=== PATIENT | female | born 1950 | race American Indian/Alaskan Native ===

== ENCOUNTER 2021-08-22 22:00 | Inpatient (IN) | payer MEDICARE, MEDICAID ==
[~2021-08-22] VITALS: Ht 167.6 cm; Wt 126.5 kg
[~2021-08-22 22:00] MED LIST: ATOR80TA PO; BRIM5DRO16 RIGHTEYE; CARV-50 PO; CLOP75TA34 PO; FURO80TA87 PO; HYDR-4069 PO; NYSPWD TP; OLOP5DRO26 EACHEYE; PER5325T PO; ZET10T PO
[2021-08-23] VITALS (7 sets, daily range): BP systolic 128–193; BP diastolic 39–51
[2021-08-23] MEDS ORDERED: morphine 2 MG/ML inj. syringe IV PRN (01:15)
[2021-08-23] MEDS: normal saline 1000ml 1,000 ML IV SCH (01:15)
[2021-08-23] MEDS ORDERED: acetaminophen 325mg tablet PO PRN ×2 (01:15)
[2021-08-23] MEDS ORDERED: HYDROcodone/acetaminophen 5mg/325mg tablet PO PRN (01:15)
[2021-08-23] MEDS ORDERED: ondansetron/PF 4mg/2ml inj IV PRN (01:15)
[2021-08-23] MEDS ORDERED: hyDRALAzine 10mg tablet PO PRN (01:15)
[2021-08-23] MEDS ORDERED: dextrose 50%-water 50ml dispensing syringe IV PRN ×2 (01:30)
[2021-08-23] MEDS ORDERED: MESSAGE TO PHARMACY PO ONE (01:30)
[2021-08-23] MEDS ORDERED: glucagon, human recombinant 1mg kit SUBCUT PRN (01:30)
[2021-08-23] MEDS ORDERED: DEXTROSE 15 GM of carb/4 tabs (each vial/BOTTLE has 4 tablets) PO PRN ×2 (01:30)
[2021-08-23] MEDS: ciprofloxacin 250mg tablet PO SCH ×3 (01:56→21:30)
[2021-08-23] MEDS ORDERED: PHO667C PO (02:11)
[2021-08-23] MEDS ORDERED: INSU100I31 (02:11)
[2021-08-23] MEDS ORDERED: DOCU-342 PO (02:11)
[2021-08-23] MEDS ORDERED: ATOR-2 PO (02:11)
[2021-08-23] MEDS ORDERED: GABA-530 PO (02:11)
[2021-08-23] MEDS ORDERED: NYST15PO4 TOP (02:11)
[2021-08-23] MEDS ORDERED: FURO80TA3 PO (02:11)
[2021-08-23] MEDS ORDERED: CARV3.122 PO (02:11)
[2021-08-23] MEDS ORDERED: INSU100I34 SQ (02:11)
[2021-08-23] MEDS ORDERED: EZET10TA48 PO (02:11)
[2021-08-23] MEDS ORDERED: LANTUS SQ (02:11)
[2021-08-23] MEDS ORDERED: CYC1OS RIGHTEYE (02:11)
[2021-08-23] MEDS ORDERED: LISI40TA13 PO (02:11)
[2021-08-23] MEDS ORDERED: PANT40TA54 PO (02:11)
[2021-08-23] MEDS: furosemide 40mg/4ml inj IV SCH ×3 (02:17→20:00)
--- NOTE | 2021-08-23 02:24 | NUR ---
LAB CALLED TO NOTIFY THAT I AM UNABLE TO GET BLOOD FROM KEVIN UMANZOR. AND [facility] FOR MIDLINE WILL PUT THIS MNG SO IT WILL BE EASIER TO TAKE BLOOD .
[2021-08-23] MEDS: morphine 2 MG/ML inj. syringe IV PRN ×2 (07:54→21:44)
[2021-08-23] MEDS: HYDROcodone/acetaminophen 10/325mg tab PO PRN (09:29)
[2021-08-23] MEDS ORDERED: heparin 1,000unit/ml 10ml vial 10 ML IV ONE (09:30)
[2021-08-23] MEDS ORDERED: heparin 1,000 units/ml 10ml inj IV ONE (09:30)
[2021-08-23] MEDS ORDERED: albumin (human) 25% 100ml IV 100 ML IV PRN (09:30)
[2021-08-23] MEDS ORDERED: EPOETIN ALFA-EPBX 20,000 UNIT/ML 1 ML MDV IV ONE (09:30)
[2021-08-23 10:24] LABS: BASOPHILS % (AUTO) 0.6 % (0-1); EOSINOPHILS # (AUTO) 0.6 X10'3 (0-0.9); EOSINOPHILS % (AUTO) 10.4 % (0-6); HEMATOCRIT 24.8 % (35.0-45.0); HEMOGLOBIN 8.1 g/dl (12.0-16.0); LYMPHOCYTES # (AUTO) 0.7 X10'3 (1.1-4.8); LYMPHOCYTES % (AUTO) 11.7 % (21-51); MEAN CORPUSCULAR HEMOGLOBIN 29.9 PG (27.0-31.0); MEAN CORPUSCULAR HGB CONC 32.6 g/dL (33.0-36.5); MEAN CORPUSCULAR VOLUME 91.5 FL (78-98); MEAN PLATELET VOLUME 7.3 FL (7.4-10.4); MONOCYTES # (AUTO) 0.5 X10'3 (0-0.9); MONOCYTES % (AUTO) 8.9 % (2-12); NEUTROPHILS % (AUTO) 68.4 % (42-75); PLATELET COUNT 223 X10'3 (140-440); RED BLOOD COUNT 2.71 X10'6 (4.20-5.60); RED CELL DISTRIBUTION WIDTH 17.5 % (11.5-14.5); WHITE BLOOD COUNT 5.9 X10'3 (4.5-11.0)
[2021-08-23 10:35] LABS: ALANINE AMINOTRANSFERASE 33 U/L (12-78); ALBUMIN 2.9 G/DL (3.4-5.0); ALBUMIN/GLOBULIN RATIO 0.9 (1.1-1.5); ALKALINE PHOSPHATASE 71 IU/L (46-116); ANION GAP 11 (8-16); ASPARTATE AMINO TRANSFERASE 22 U/L (10-37); BILIRUBIN,TOTAL 0.4 MG/DL (0.1-1.0); BLOOD UREA NITROGEN 75 MG/DL (7-18); BUN/CREATININE RATIO 10.1 (6.6-38.0); CALCIUM 8.2 MG/DL (8.5-10.1); CHLORIDE 105 MMOL/L (99-107); CREATININE 7.46 MG/DL (0.40-0.90); GLUCOSE 82 MG/DL (70-104); MAGNESIUM 2.4 MG/DL (1.5-2.4); PHOSPHORUS 7.2 MG/DL (2.3-4.5); POTASSIUM 5.3 MMOL/L (3.5-5.1); SODIUM 144 MMOL/L (135-145); TOTAL CARBON DIOXIDE 27.7 MMOL/L (24-32); TOTAL PROTEIN 6.2 G/DL (6.4-8.2); eGFR 5 ML/MIN
[2021-08-23] MEDS ORDERED: CARV-50 PO (11:12)
[2021-08-23] MEDS: heparin, porcine 5000 units/ml vial SQ SCH ×2 (11:22→20:00)
--- NOTE | 2021-08-23 11:47 | NUR ---
PAGER ID: [phone] MESSAGE: [id number] Ashley Harding- Requests Hydroxyzine for itching. Gladys [id number]
--- NOTE | 2021-08-23 11:48 | NUR ---
PAGER ID: [phone] MESSAGE: [id number] Master Harding to place midline for lab draws? Pt is difficult stick. Gladys [id number] Addendum: 08/23/21 at 1205 by Gladys Fatima RN Dr. Ferris states she does not want her to have a midline
[2021-08-23] MEDS ORDERED: HYDR-3686 PO (12:03)
[2021-08-23] MEDS ORDERED: hydrOXYzine 25 MG tablet PO ONE (12:05)
[2021-08-23] MEDS ORDERED: INSU100I31 SQ (13:47)
[2021-08-23] MEDS ORDERED: FOSI40TA71 PO (13:47)
--- NOTE | 2021-08-23 14:06 | NUR ---
DM consult: Pt with T2DM, well controlled with A1c 6.6% with BG range 76-82 since admit. DM education not warranted at this time. Noted pt with a low Naun of 12. Per RN skin assessment pt with bruises to bilat arms and an open area to coccyx. Will continue to follow and make recommendations as appropriate pending trends in PO intake. Addendum: 08/23/21 at [address] Amended: Links added.
--- NOTE | 2021-08-23 16:57 | NUR ---
PAGER ID: [phone] MESSAGE: [id number] Dyan Harding- unable to get clean UA. OK to straight cath? Gladys [id number]
--- NOTE | 2021-08-23 18:27 | NUR ---
Problems reprioritized. Patient report given, questions answered & plan of care reviewed with Ghazal VALLE.
[2021-08-23] MEDS ORDERED: temazepam 15mg capsule PO PRN (21:00)
[2021-08-23] MEDS: insulin glargine (Lantus) pen - multi-dose SQ SCH (21:00)
[2021-08-24 02:00] VITALS: BP 153/57
[2021-08-24 06:00] VITALS: BP 149/42
[2021-08-24 06:36] LABS: BASOPHILS % (AUTO) 1.1 % (0-1); EOSINOPHILS # (AUTO) 0.6 X10'3 (0-0.9); EOSINOPHILS % (AUTO) 13.4 % (0-6); HEMATOCRIT 24.4 % (35.0-45.0); LYMPHOCYTES # (AUTO) 0.5 X10'3 (1.1-4.8); LYMPHOCYTES % (AUTO) 11.7 % (21-51); MEAN CORPUSCULAR HEMOGLOBIN 30.2 PG (27.0-31.0); MEAN CORPUSCULAR HGB CONC 32.7 g/dL (33.0-36.5); MEAN CORPUSCULAR VOLUME 92.5 FL (78-98); MEAN PLATELET VOLUME 7.6 FL (7.4-10.4); MONOCYTES # (AUTO) 0.4 X10'3 (0-0.9); MONOCYTES % (AUTO) 9.8 % (2-12); NEUTROPHILS # (AUTO) 2.9 X10'3 (1.8-7.7); PLATELET COUNT 199 X10'3 (140-440); RED BLOOD COUNT 2.64 X10'6 (4.20-5.60); RED CELL DISTRIBUTION WIDTH 17.5 % (11.5-14.5); WHITE BLOOD COUNT 4.6 X10'3 (4.5-11.0)
[2021-08-24 06:50] LABS: ALANINE AMINOTRANSFERASE 28 U/L (12-78); ALBUMIN 2.7 G/DL (3.4-5.0); ALBUMIN/GLOBULIN RATIO 0.8 (1.1-1.5); ALKALINE PHOSPHATASE 69 IU/L (46-116); ANION GAP 13 (8-16); ASPARTATE AMINO TRANSFERASE 23 U/L (10-37); BILIRUBIN,TOTAL 0.4 MG/DL (0.1-1.0); BLOOD UREA NITROGEN 74 MG/DL (7-18); BUN/CREATININE RATIO 10.4 (6.6-38.0); CALCIUM 8.1 MG/DL (8.5-10.1); CHLORIDE 105 MMOL/L (99-107); CREATININE 7.13 MG/DL (0.40-0.90); GLUCOSE 104 MG/DL (70-104); MAGNESIUM 2.3 MG/DL (1.5-2.4); PHOSPHORUS 7.4 MG/DL (2.3-4.5); POTASSIUM 5.6 MMOL/L (3.5-5.1); SODIUM 143 MMOL/L (135-145); TOTAL PROTEIN 5.9 G/DL (6.4-8.2); eGFR 6 ML/MIN
[2021-08-24] MEDS ORDERED: heparin 1,000 units/ml 10ml inj HE ONE ×2 (08:00)
[2021-08-24] MEDS ORDERED: EPOETIN ALFA-EPBX 20,000 UNIT/ML 1 ML MDV IV ONE (08:00)
[2021-08-24] MEDS ORDERED: heparin 1,000 units/ml 10ml inj IV ONE (08:00)
[2021-08-24] MEDS ORDERED: albumin (human) 25% 100ml IV 100 ML IV PRN (08:00)
[2021-08-24] MEDS ORDERED: heparin 1,000unit/ml 10ml vial 10 ML IV ONE (08:00)
[2021-08-24] MEDS: heparin, porcine 5000 units/ml vial SQ SCH ×2 (08:02→19:37)
[2021-08-24] MEDS: furosemide 40mg/4ml inj IV SCH ×2 (08:02→20:00)
[2021-08-24] MEDS: morphine 2 MG/ML inj. syringe IV PRN ×2 (08:03→21:11)
[2021-08-24] MEDS: HYDROcodone/acetaminophen 10/325mg tab PO PRN ×2 (10:14→19:38)
--- NOTE | 2021-08-24 10:14 | NUR ---
RESOURCE RN PAIN MEDICATION GIVEN FOR PRIMARY NURSE ZAC VALLE [facility]
[2021-08-24 11:00] VITALS: BP 127/46
[2021-08-24] MEDS ORDERED: hydrOXYzine 25 MG tablet PO SCH (13:00)
[2021-08-24] MEDS: calcium acetate 667mg (PhosLO) capsule PO SCH ×2 (13:00→20:02)
[2021-08-24] MEDS: carVEDilol 12.5mg tablet PO SCH ×2 (13:13→20:00)
[2021-08-24] MEDS: lisinopril 20mg tablet PO SCH (13:13)
[2021-08-24] MEDS: ciprofloxacin 250mg tablet PO SCH ×2 (14:10→21:00)
--- NOTE | 2021-08-24 14:59 | NUR ---
PRESSURE ULCER EDUCATION: DEFINITION: A pressure ulcer is an area of skin that breaks down when you stay in one position too long. The constant pressure against the skin reduces the blood flow to that area and the affected tissue dies. CAUSES: "Being bedridden or in a wheelchair "Fragile skin "Having a chronic condition, such as diabetes or vascular disease "Inability to move certain parts of your body without assistance "Older age "Incontinence of urine or stool SYMPTOMS: "A reddened area that DOES NOT turn white when pressed on - this can be the beginning of a pressure ulcer "A blister, deep sore or a crater - these can be advanced pressure ulcers FIRST AID: "Relieve the pressure on this area "Keep the area clean and dry "Call your primary doctor if you see any of the above symptoms "DO NOT massage the area "DO NOT use a donut shaped or ring shaped pillow- these actually interfere with the blood flow and cause complications PREVENTION: "Check for pressure ulcers everyday "Change position at least every two hours to relieve pressure "Use items that help relieve pressure- pillows, sheepskin, foam padding, and powders. "Keep skin clean and dry "Eat healthy well balanced meals "Exercise daily IF YOU SEE ANY OF THESE SYMPTOMS WHILE IN THE HOSPITAL - TELL YOUR NURSE IMMEDIATELY. IF YOU SEE ANY OF THESE SYMPTOMS WHILE AT HOME OR HAVE ANY QUESTIONS OR CONCERNS ABOUT PRESSURE ULCERS - CALL YOUR PRIMARY DOCTOR IMMEDIATELY. Addendum: 08/24/21 at 1500 by Merlyn Almeida RN Amended: Links added.
[2021-08-24 15:00] VITALS: BP 160/50
[2021-08-24] MEDS: cyclopentolate 1% 2ml ophthalmic solution RIGHTEYE SCH ×3 (15:54→21:00)
[2021-08-24] MEDS: pantoprazole 40mg Tablet.DR PO SCH (16:16)
--- NOTE | 2021-08-24 18:07 | NUR ---
Problems reprioritized. Patient report given, questions answered & plan of care reviewed with Ranjana VALLE.
--- NOTE | 2021-08-24 18:09 | NUR ---
Patient in room PCU 3014. I have received report from LEONARD Graham and had the opportunity to ask questions and assume patient care.
[2021-08-24 19:00] VITALS: BP 167/53
[2021-08-24] MEDS: nystatin 15 GM powder TP SCH (19:44)
[2021-08-24] MEDS: gabapentin 100mg capsule PO SCH (20:01)
[2021-08-24] MEDS: insulin glargine (Lantus) pen - multi-dose SQ SCH (20:35)
[2021-08-24 23:00] VITALS: BP 149/46
[2021-08-25] MEDS: normal saline 1000ml 1,000 ML IV SCH (01:55)
[2021-08-25 03:00] VITALS: BP 150/52
[2021-08-25 06:00] VITALS: BP 155/40
--- NOTE | 2021-08-25 06:11 | NUR ---
Problems reprioritized. Patient report given, questions answered & plan of care reviewed with LEONARD Graham.
[2021-08-25 06:57] LABS: BASOPHILS % (AUTO) 0.9 % (0-1); EOSINOPHILS # (AUTO) 0.4 X10'3 (0-0.9); EOSINOPHILS % (AUTO) 11.5 % (0-6); HEMATOCRIT 24.2 % (35.0-45.0); HEMOGLOBIN 7.9 g/dl (12.0-16.0); LYMPHOCYTES # (AUTO) 0.6 X10'3 (1.1-4.8); LYMPHOCYTES % (AUTO) 16.6 % (21-51); MEAN CORPUSCULAR HGB CONC 32.8 g/dL (33.0-36.5); MEAN CORPUSCULAR VOLUME 91.6 FL (78-98); MEAN PLATELET VOLUME 7.7 FL (7.4-10.4); MONOCYTES # (AUTO) 0.5 X10'3 (0-0.9); MONOCYTES % (AUTO) 11.9 % (2-12); NEUTROPHILS # (AUTO) 2.3 X10'3 (1.8-7.7); NEUTROPHILS % (AUTO) 59.1 % (42-75); PLATELET COUNT 186 X10'3 (140-440); RED BLOOD COUNT 2.64 X10'6 (4.20-5.60); RED CELL DISTRIBUTION WIDTH 16.7 % (11.5-14.5); WHITE BLOOD COUNT 3.8 X10'3 (4.5-11.0)
[2021-08-25 07:16] LABS: ALANINE AMINOTRANSFERASE 23 U/L (12-78); ALBUMIN 2.7 G/DL (3.4-5.0); ALBUMIN/GLOBULIN RATIO 0.8 (1.1-1.5); ALKALINE PHOSPHATASE 68 IU/L (46-116); ANION GAP 11 (8-16); ASPARTATE AMINO TRANSFERASE 16 U/L (10-37); BILIRUBIN,TOTAL 0.4 MG/DL (0.1-1.0); BLOOD UREA NITROGEN 54 MG/DL (7-18); BUN/CREATININE RATIO 9.5 (6.6-38.0); CALCIUM 8.4 MG/DL (8.5-10.1); CHLORIDE 104 MMOL/L (99-107); GLUCOSE 148 MG/DL (70-104); MAGNESIUM 2.1 MG/DL (1.5-2.4); PHOSPHORUS 6.1 MG/DL (2.3-4.5); POTASSIUM 4.8 MMOL/L (3.5-5.1); SODIUM 143 MMOL/L (135-145); TOTAL CARBON DIOXIDE 27.6 MMOL/L (24-32); eGFR 7 ML/MIN
[2021-08-25] MEDS: heparin, porcine 5000 units/ml vial SQ SCH ×2 (07:16→19:59)
[2021-08-25] MEDS: pantoprazole 40mg Tablet.DR PO SCH (07:16)
[2021-08-25] MEDS: calcium acetate 667mg (PhosLO) capsule PO SCH ×3 (07:16→20:21)
[2021-08-25] MEDS: carVEDilol 12.5mg tablet PO SCH ×2 (07:16→19:54)
[2021-08-25] MEDS: atorvastatin 20mg tablet PO SCH (07:17)
[2021-08-25] MEDS: HYDROcodone/acetaminophen 10/325mg tab PO PRN ×2 (07:18→14:01)
[2021-08-25] MEDS: cyclopentolate 1% 2ml ophthalmic solution RIGHTEYE SCH ×4 (07:19→20:21)
[2021-08-25] MEDS: lisinopril 20mg tablet PO SCH (07:19)
[2021-08-25] MEDS: furosemide 40mg/4ml inj IV SCH ×2 (07:27→19:59)
[2021-08-25] MEDS: nystatin 15 GM powder TP SCH ×2 (07:27→19:55)
[2021-08-25] MEDS ORDERED: insulin glargine (Lantus) pen - multi-dose SQ SCH (08:00)
[2021-08-25] MEDS ORDERED: furosemide 40mg tablet PO SCH (08:00)
[2021-08-25] MEDS: morphine 2 MG/ML inj. syringe IV PRN ×3 (09:24→19:55)
[2021-08-25] MEDS: ciprofloxacin 250mg tablet PO SCH ×2 (10:27→21:40)
[2021-08-25 11:00] VITALS: BP 156/37
[2021-08-25] MEDS: hydrOXYzine 25 MG tablet PO PRN ×2 (14:01→19:55)
[2021-08-25 15:00] VITALS: BP 180/58
--- NOTE | 2021-08-25 18:13 | NUR ---
Problems reprioritized. Patient report given, questions answered & plan of care reviewed with Ranjana VALLE.
--- NOTE | 2021-08-25 18:15 | NUR ---
Patient in room PCU 3014. I have received report from LEONARD Graham and had the opportunity to ask questions and assume patient care.
[2021-08-25 19:00] VITALS: BP 138/55
[2021-08-25] MEDS: gabapentin 100mg capsule PO SCH (20:21)
[2021-08-25] MEDS: insulin glargine (Lantus) pen - multi-dose SQ SCH (21:43)
[2021-08-25 23:00] VITALS: BP 135/23
[2021-08-26] MEDS: morphine 2 MG/ML inj. syringe IV PRN ×2 (00:28→08:20)
[2021-08-26 03:00] VITALS: BP 139/41
[2021-08-26 06:00] VITALS: BP 131/41
--- NOTE | 2021-08-26 06:15 | NUR ---
Problems reprioritized. Patient report given, questions answered & plan of care reviewed with LEONARD Pendleton.
[2021-08-26 06:35] LABS: BASOPHILS % (AUTO) 0.8 % (0-1); EOSINOPHILS # (AUTO) 0.6 X10'3 (0-0.9); EOSINOPHILS % (AUTO) 15.2 % (0-6); HEMATOCRIT 23.7 % (35.0-45.0); HEMOGLOBIN 7.9 g/dl (12.0-16.0); LYMPHOCYTES # (AUTO) 0.6 X10'3 (1.1-4.8); LYMPHOCYTES % (AUTO) 17.3 % (21-51); MEAN CORPUSCULAR HEMOGLOBIN 30.3 PG (27.0-31.0); MEAN CORPUSCULAR HGB CONC 33.1 g/dL (33.0-36.5); MEAN CORPUSCULAR VOLUME 91.5 FL (78-98); MEAN PLATELET VOLUME 7.7 FL (7.4-10.4); MONOCYTES # (AUTO) 0.4 X10'3 (0-0.9); MONOCYTES % (AUTO) 10.8 % (2-12); NEUTROPHILS % (AUTO) 55.9 % (42-75); PLATELET COUNT 186 X10'3 (140-440); WHITE BLOOD COUNT 3.6 X10'3 (4.5-11.0)
[2021-08-26 06:55] LABS: ALANINE AMINOTRANSFERASE 21 U/L (12-78); ALBUMIN 2.9 G/DL (3.4-5.0); ALBUMIN/GLOBULIN RATIO 0.8 (1.1-1.5); ALKALINE PHOSPHATASE 67 IU/L (46-116); ANION GAP 7 (8-16); ASPARTATE AMINO TRANSFERASE 14 U/L (10-37); BILIRUBIN,TOTAL 0.4 MG/DL (0.1-1.0); BLOOD UREA NITROGEN 58 MG/DL (7-18); BUN/CREATININE RATIO 9.2 (6.6-38.0); CALCIUM 8.6 MG/DL (8.5-10.1); CHLORIDE 102 MMOL/L (99-107); CREATININE 6.32 MG/DL (0.40-0.90); GLUCOSE 137 MG/DL (70-104); MAGNESIUM 2.2 MG/DL (1.5-2.4); PHOSPHORUS 6.7 MG/DL (2.3-4.5); POTASSIUM 4.6 MMOL/L (3.5-5.1); SODIUM 134 MMOL/L (135-145); TOTAL CARBON DIOXIDE 25.5 MMOL/L (24-32); TOTAL PROTEIN 6.6 G/DL (6.4-8.2); eGFR 6 ML/MIN
[2021-08-26] MEDS: carVEDilol 12.5mg tablet PO SCH ×2 (08:00→20:00)
[2021-08-26] MEDS: lisinopril 20mg tablet PO SCH (08:00)
[2021-08-26] MEDS ORDERED: heparin 1,000unit/ml 10ml vial 10 ML IV ONE (08:00)
[2021-08-26] MEDS: cyclopentolate 1% 2ml ophthalmic solution RIGHTEYE SCH ×4 (08:00→21:00)
[2021-08-26] MEDS ORDERED: albumin (human) 25% 100ml IV 100 ML IV PRN (08:00)
[2021-08-26] MEDS: calcium acetate 667mg (PhosLO) capsule PO SCH ×4 (08:00→21:00)
[2021-08-26] MEDS ORDERED: heparin 1,000 units/ml 10ml inj IV ONE (08:00)
[2021-08-26] MEDS ORDERED: EPOETIN ALFA-EPBX 20,000 UNIT/ML 1 ML MDV IV ONE (08:00)
[2021-08-26] MEDS: nystatin 15 GM powder TP SCH ×2 (08:16→20:00)
[2021-08-26] MEDS: furosemide 40mg/4ml inj IV SCH ×2 (08:16→20:00)
[2021-08-26] MEDS: heparin, porcine 5000 units/ml vial SQ SCH ×2 (08:17→20:00)
[2021-08-26] MEDS: atorvastatin 20mg tablet PO SCH (08:17)
[2021-08-26] MEDS: pantoprazole 40mg Tablet.DR PO SCH (08:17)
[2021-08-26] MEDS: HYDROcodone/acetaminophen 10/325mg tab PO PRN (11:19)
[2021-08-26] MEDS: ciprofloxacin 250mg tablet PO SCH ×2 (11:45→22:00)
[2021-08-26 15:00] VITALS: BP 128/38
[2021-08-26 18:00] VITALS: BP 133/34
--- NOTE | 2021-08-26 18:14 | NUR ---
Patient in room PCU 3014. I have received report to Ghazal Varghese and had the opportunity to ask questions and assume patient care.
[2021-08-26] MEDS: insulin glargine (Lantus) pen - multi-dose SQ SCH (21:00)
[2021-08-26] MEDS: gabapentin 100mg capsule PO SCH (21:00)
[2021-08-26 22:00] VITALS: BP 137/34
[2021-08-27] MEDS: normal saline 1000ml 1,000 ML IV SCH (01:15)
[2021-08-27 02:00] VITALS: BP 132/46
[2021-08-27] MEDS: morphine 2 MG/ML inj. syringe IV PRN ×3 (05:47→20:38)
[2021-08-27 06:00] VITALS: BP 146/50
[2021-08-27 07:34] LABS: BASOPHILS % (AUTO) 0.8 % (0-1); EOSINOPHILS # (AUTO) 0.5 X10'3 (0-0.9); EOSINOPHILS % (AUTO) 11.6 % (0-6); HEMOGLOBIN 8.1 g/dl (12.0-16.0); LYMPHOCYTES # (AUTO) 0.5 X10'3 (1.1-4.8); LYMPHOCYTES % (AUTO) 11.9 % (21-51); MEAN CORPUSCULAR HEMOGLOBIN 29.9 PG (27.0-31.0); MEAN CORPUSCULAR HGB CONC 32.3 g/dL (33.0-36.5); MEAN CORPUSCULAR VOLUME 92.7 FL (78-98); MEAN PLATELET VOLUME 7.7 FL (7.4-10.4); MONOCYTES # (AUTO) 0.5 X10'3 (0-0.9); MONOCYTES % (AUTO) 10.9 % (2-12); NEUTROPHILS # (AUTO) 2.8 X10'3 (1.8-7.7); NEUTROPHILS % (AUTO) 64.8 % (42-75); PLATELET COUNT 206 X10'3 (140-440); RED CELL DISTRIBUTION WIDTH 17.3 % (11.5-14.5); WHITE BLOOD COUNT 4.4 X10'3 (4.5-11.0)
[2021-08-27 07:44] LABS: ALANINE AMINOTRANSFERASE 18 U/L (12-78); ALBUMIN 2.7 G/DL (3.4-5.0); ALBUMIN/GLOBULIN RATIO 0.8 (1.1-1.5); ALKALINE PHOSPHATASE 66 IU/L (46-116); ANION GAP 8 (8-16); ASPARTATE AMINO TRANSFERASE 11 U/L (10-37); BILIRUBIN,TOTAL 0.3 MG/DL (0.1-1.0); BLOOD UREA NITROGEN 38 MG/DL (7-18); BUN/CREATININE RATIO 7.2 (6.6-38.0); CALCIUM 8.4 MG/DL (8.5-10.1); CHLORIDE 103 MMOL/L (99-107); CREATININE 5.25 MG/DL (0.40-0.90); GLUCOSE 154 MG/DL (70-104); PHOSPHORUS 5.4 MG/DL (2.3-4.5); POTASSIUM 4.5 MMOL/L (3.5-5.1); SODIUM 141 MMOL/L (135-145); TOTAL CARBON DIOXIDE 29.7 MMOL/L (24-32); TOTAL PROTEIN 5.9 G/DL (6.4-8.2); eGFR 8 ML/MIN
[2021-08-27] MEDS: atorvastatin 20mg tablet PO SCH (07:59)
[2021-08-27] MEDS: pantoprazole 40mg Tablet.DR PO SCH (07:59)
[2021-08-27] MEDS: lisinopril 20mg tablet PO SCH (08:00)
[2021-08-27] MEDS: calcium acetate 667mg (PhosLO) capsule PO SCH ×3 (08:00→20:24)
[2021-08-27] MEDS: heparin, porcine 5000 units/ml vial SQ SCH ×2 (08:01→20:22)
[2021-08-27] MEDS: furosemide 40mg/4ml inj IV SCH ×2 (08:01→20:22)
[2021-08-27] MEDS: carVEDilol 12.5mg tablet PO SCH ×2 (08:01→20:22)
[2021-08-27] MEDS: cyclopentolate 1% 2ml ophthalmic solution RIGHTEYE SCH ×4 (08:03→20:24)
[2021-08-27] MEDS: nystatin 15 GM powder TP SCH ×2 (08:04→20:00)
[2021-08-27] MEDS: HYDROcodone/acetaminophen 10/325mg tab PO PRN ×4 (08:13→22:57)
[2021-08-27] MEDS: ciprofloxacin 250mg tablet PO SCH ×2 (10:26→22:00)
[2021-08-27 11:00] VITALS: BP 155/37
[2021-08-27] MEDS: hydrOXYzine 25 MG tablet PO PRN ×3 (12:03→21:12)
[2021-08-27] MEDS: NUT.TX.IMP.RENAL FXN,LAC-REDUC (Nepro) 237 ML VANILLA PO SCH (12:30)
[2021-08-27] MEDS: insulin Lispro (HumaLOG) vial - multi-dose SQ SCH (12:54)
[2021-08-27 15:00] VITALS: BP 126/26
[2021-08-27] MEDS: JUVEN Smoothie Arginine/Glut./Ca2+Bmb (Juven 19.3pkt) 240ml cup PO SCH (17:48)
[2021-08-27 18:00] VITALS: BP 127/54
--- NOTE | 2021-08-27 18:28 | NUR ---
Problems reprioritized. Patient report given, questions answered & plan of care reviewed with Ghazal VALLE.
[2021-08-27] MEDS: gabapentin 100mg capsule PO SCH (20:22)
[2021-08-27] MEDS: insulin glargine (Lantus) pen - multi-dose SQ SCH (21:00)
[2021-08-27 22:00] VITALS: BP 138/41
[2021-08-28 02:00] VITALS: BP 128/41
[2021-08-28 06:00] VITALS: BP 148/42
[2021-08-28 06:48] LABS: EOSINOPHILS # (AUTO) 0.7 X10'3 (0-0.9); EOSINOPHILS % (AUTO) 17.3 % (0-6); HEMATOCRIT 24.7 % (35.0-45.0); HEMOGLOBIN 8.2 g/dl (12.0-16.0); LYMPHOCYTES # (AUTO) 0.7 X10'3 (1.1-4.8); MEAN CORPUSCULAR HEMOGLOBIN 30.6 PG (27.0-31.0); MEAN CORPUSCULAR HGB CONC 33.1 g/dL (33.0-36.5); MEAN CORPUSCULAR VOLUME 92.6 FL (78-98); MEAN PLATELET VOLUME 7.6 FL (7.4-10.4); MONOCYTES # (AUTO) 0.5 X10'3 (0-0.9); MONOCYTES % (AUTO) 12.1 % (2-12); NEUTROPHILS # (AUTO) 2.1 X10'3 (1.8-7.7); NEUTROPHILS % (AUTO) 51.6 % (42-75); PLATELET COUNT 200 X10'3 (140-440); RED BLOOD COUNT 2.66 X10'6 (4.20-5.60); RED CELL DISTRIBUTION WIDTH 17.2 % (11.5-14.5); WHITE BLOOD COUNT 4.2 X10'3 (4.5-11.0)
[2021-08-28 07:05] LABS: ALANINE AMINOTRANSFERASE 18 U/L (12-78); ALBUMIN 2.8 G/DL (3.4-5.0); ALBUMIN/GLOBULIN RATIO 0.9 (1.1-1.5); ALKALINE PHOSPHATASE 65 IU/L (46-116); ANION GAP 10 (8-16); ASPARTATE AMINO TRANSFERASE 10 U/L (10-37); BILIRUBIN,TOTAL 0.3 MG/DL (0.1-1.0); BLOOD UREA NITROGEN 42 MG/DL (7-18); CALCIUM 8.3 MG/DL (8.5-10.1); CHLORIDE 100 MMOL/L (99-107); CREATININE 5.98 MG/DL (0.40-0.90); GLUCOSE 176 MG/DL (70-104); PHOSPHORUS 5.9 MG/DL (2.3-4.5); POTASSIUM 4.4 MMOL/L (3.5-5.1); SODIUM 138 MMOL/L (135-145); TOTAL CARBON DIOXIDE 28.3 MMOL/L (24-32); eGFR 7 ML/MIN
[2021-08-28] MEDS: carVEDilol 12.5mg tablet PO SCH ×2 (08:18→20:00)
[2021-08-28] MEDS: heparin, porcine 5000 units/ml vial SQ SCH ×2 (08:19→20:00)
[2021-08-28] MEDS: atorvastatin 20mg tablet PO SCH (08:20)
[2021-08-28] MEDS: pantoprazole 40mg Tablet.DR PO SCH (08:20)
[2021-08-28] MEDS: calcium acetate 667mg (PhosLO) capsule PO SCH ×3 (08:21→21:00)
[2021-08-28] MEDS: lisinopril 20mg tablet PO SCH (08:21)
[2021-08-28] MEDS: nystatin 15 GM powder TP SCH ×2 (08:22→20:00)
[2021-08-28] MEDS: cyclopentolate 1% 2ml ophthalmic solution RIGHTEYE SCH ×2 (08:22→13:00)
[2021-08-28] MEDS: JUVEN Smoothie Arginine/Glut./Ca2+Bmb (Juven 19.3pkt) 240ml cup PO SCH ×2 (08:23→17:48)
[2021-08-28] MEDS: furosemide 40mg/4ml inj IV SCH ×2 (08:28→20:00)
[2021-08-28] MEDS: HYDROcodone/acetaminophen 10/325mg tab PO PRN ×3 (10:00→19:29)
[2021-08-28] MEDS ORDERED: HYDROcodone/acetaminophen 10/325mg tab PO PRN (10:30)
[2021-08-28] MEDS ORDERED: BIMA2.5D OP ×3 (10:56→15:16)
[2021-08-28] MEDS ORDERED: BRIM5DRO2 OP (10:56)
--- NOTE | 2021-08-28 10:57 | NUR ---
Called Dr. Bonds's petroleum engineering professor to verify patient's eye drops. Office states she is only taking Lumigan and Combigan. Medication reconciliation updated and pharmacy notified. Physician notified.
[2021-08-28 11:00] VITALS: BP 138/40
[2021-08-28] MEDS: ciprofloxacin 250mg tablet PO SCH ×2 (12:06→22:15)
[2021-08-28] MEDS: NUT.TX.IMP.RENAL FXN,LAC-REDUC (Nepro) 237 ML VANILLA PO SCH (12:30)
--- NOTE | 2021-08-28 13:39 | NUR ---
PAGER ID: [phone] MESSAGE: [id number] Dyan Harding. Floor Installation Mechanic called. Eyes drops updated in Med Rec. Vvprbb [id number]
[2021-08-28 15:00] VITALS: BP 152/33
[2021-08-28 18:00] VITALS: BP 153/33
--- NOTE | 2021-08-28 18:17 | NUR ---
Problems reprioritized. Patient report given, questions answered & plan of care reviewed with Ghazal VALLE.
[2021-08-28] MEDS: hydrOXYzine 25 MG tablet PO PRN (19:20)
[2021-08-28] MEDS: timolol 0.5% ophthalmic solution 5ml bottle RIGHTEYE SCH (20:00)
[2021-08-28] MEDS: brimonidine 0.2% 5 ML ophthalmic drops RIGHTEYE SCH (20:00)
[2021-08-28] MEDS ORDERED: latanoprost 0.005% 2.5ml ophthalmic drops RIGHTEYE SCH (21:00)
[2021-08-28] MEDS: insulin glargine (Lantus) pen - multi-dose SQ SCH (21:00)
[2021-08-28] MEDS: gabapentin 100mg capsule PO SCH (21:27)
[2021-08-28] MEDS: latanoprost 0.005% 2.5ml ophthalmic drops RIGHTEYE SCH (21:28)
[2021-08-28 22:00] VITALS: BP 143/43
[2021-08-29] VITALS (7 sets, daily range): BP systolic 115–144; BP diastolic 40–55
[2021-08-29] MEDS: normal saline 1000ml 1,000 ML IV SCH (01:25)
[2021-08-29 06:03] LABS: HBSAG SCREEN Negative (Negative)
[2021-08-29] MEDS ORDERED: heparin 1,000unit/ml 10ml vial 10 ML IV ONE (07:55)
[2021-08-29] MEDS ORDERED: albumin (human) 25% 100ml IV 100 ML IV PRN (07:55)
[2021-08-29] MEDS ORDERED: heparin 1,000 units/ml 10ml inj IV ONE (07:55)
[2021-08-29] MEDS ORDERED: EPOETIN ALFA-EPBX 20,000 UNIT/ML 1 ML MDV IV ONE (07:55)
[2021-08-29] MEDS: lisinopril 20mg tablet PO SCH (08:00)
[2021-08-29] MEDS: carVEDilol 12.5mg tablet PO SCH ×2 (08:00→20:00)
[2021-08-29] MEDS: furosemide 40mg/4ml inj IV SCH ×2 (08:00→20:00)
[2021-08-29] MEDS: JUVEN Smoothie Arginine/Glut./Ca2+Bmb (Juven 19.3pkt) 240ml cup PO SCH ×2 (08:00→17:51)
[2021-08-29] MEDS: HYDROcodone/acetaminophen 10/325mg tab PO PRN ×3 (08:34→19:45)
[2021-08-29] MEDS: atorvastatin 20mg tablet PO SCH (08:35)
[2021-08-29] MEDS: nystatin 15 GM powder TP SCH ×2 (08:40→20:00)
[2021-08-29] MEDS: heparin, porcine 5000 units/ml vial SQ SCH ×2 (08:41→20:00)
[2021-08-29] MEDS: pantoprazole 40mg Tablet.DR PO SCH (08:41)
[2021-08-29] MEDS: insulin Lispro (HumaLOG) vial - multi-dose SQ SCH (09:02)
[2021-08-29] MEDS: latanoprost 0.005% 2.5ml ophthalmic drops RIGHTEYE SCH (09:05)
[2021-08-29] MEDS: timolol 0.5% ophthalmic solution 5ml bottle RIGHTEYE SCH ×2 (09:05→20:00)
[2021-08-29] MEDS: brimonidine 0.2% 5 ML ophthalmic drops RIGHTEYE SCH ×2 (09:05→20:00)
[2021-08-29] MEDS: calcium acetate 667mg (PhosLO) capsule PO SCH ×3 (09:12→21:00)
[2021-08-29] MEDS ORDERED: LIDOcaine 1% (10mg/ml) 2ml vial SQ ONE (09:50)
[2021-08-29 10:58] LABS: BASOPHILS % (AUTO) 0.6 % (0-1); EOSINOPHILS # (AUTO) 0.6 X10'3 (0-0.9); EOSINOPHILS % (AUTO) 11.6 % (0-6); HEMATOCRIT 24.3 % (35.0-45.0); HEMOGLOBIN 7.7 g/dl (12.0-16.0); LYMPHOCYTES # (AUTO) 0.5 X10'3 (1.1-4.8); LYMPHOCYTES % (AUTO) 9.5 % (21-51); MEAN CORPUSCULAR HEMOGLOBIN 29.9 PG (27.0-31.0); MEAN CORPUSCULAR HGB CONC 31.8 g/dL (33.0-36.5); MEAN CORPUSCULAR VOLUME 93.8 FL (78-98); MEAN PLATELET VOLUME 7.4 FL (7.4-10.4); MONOCYTES # (AUTO) 0.4 X10'3 (0-0.9); MONOCYTES % (AUTO) 7.8 % (2-12); NEUTROPHILS # (AUTO) 3.6 X10'3 (1.8-7.7); NEUTROPHILS % (AUTO) 70.5 % (42-75); PLATELET COUNT 192 X10'3 (140-440); RED BLOOD COUNT 2.59 X10'6 (4.20-5.60); RED CELL DISTRIBUTION WIDTH 17.3 % (11.5-14.5); WHITE BLOOD COUNT 5.1 X10'3 (4.5-11.0)
[2021-08-29 11:11] LABS: MAGNESIUM 2.1 MG/DL (1.5-2.4); PHOSPHORUS 6.3 MG/DL (2.3-4.5)
[2021-08-29] MEDS: NUT.TX.IMP.RENAL FXN,LAC-REDUC (Nepro) 237 ML VANILLA PO SCH ×2 (12:30→13:30)
--- NOTE | 2021-08-29 13:11 | NUR ---
ROOM 3014/A KEVIN UMANZOR was complaint with a chest pain.12 Lead EKG done rate 60 Atrial - Ventricular dual - paced rhythm.
[2021-08-29] MEDS: ciprofloxacin 250mg tablet PO SCH ×2 (15:16→22:00)
--- NOTE | 2021-08-29 18:44 | NUR ---
Problems reprioritized. Patient report given, questions answered & plan of care reviewed with Ghazal/RN
[2021-08-29] MEDS: hydrOXYzine 25 MG tablet PO PRN (19:41)
[2021-08-29] MEDS: gabapentin 100mg capsule PO SCH (21:34)
[2021-08-29] MEDS: insulin glargine (Lantus) pen - multi-dose SQ SCH (21:43)
[2021-08-30] VITALS (8 sets, daily range): BP systolic 98–160; BP diastolic 27–58
[2021-08-30] MEDS: HYDROcodone/acetaminophen 10/325mg tab PO PRN ×3 (04:56→19:35)
[2021-08-30 06:53] LABS: MAGNESIUM 2.1 MG/DL (1.5-2.4)
[2021-08-30 06:58] LABS: PHOSPHORUS 5.7 MG/DL (2.3-4.5)
[2021-08-30] MEDS: JUVEN Smoothie Arginine/Glut./Ca2+Bmb (Juven 19.3pkt) 240ml cup PO SCH ×2 (07:30→17:31)
[2021-08-30] MEDS: furosemide 40mg/4ml inj IV SCH ×2 (08:00→20:19)
[2021-08-30] MEDS: carVEDilol 12.5mg tablet PO SCH ×2 (08:00→09:34)
--- NOTE | 2021-08-30 09:31 | NUR ---
Page Sent PAGER ID: [phone] MESSAGE: KASEY Pt in rm [id number] Ashley Harding diastolic BP is running low 130/27 (6am) and 139/35 Now. Robyn PCU [id number]
[2021-08-30] MEDS: ciprofloxacin 250mg tablet PO SCH ×2 (09:32→22:31)
[2021-08-30] MEDS: heparin, porcine 5000 units/ml vial SQ SCH ×2 (09:33→20:19)
[2021-08-30] MEDS: lisinopril 20mg tablet PO SCH (09:33)
[2021-08-30] MEDS: gabapentin 100mg capsule PO SCH (09:33)
[2021-08-30] MEDS: atorvastatin 20mg tablet PO SCH (09:34)
[2021-08-30] MEDS: pantoprazole 40mg Tablet.DR PO SCH (09:34)
[2021-08-30] MEDS: calcium acetate 667mg (PhosLO) capsule PO SCH ×3 (09:35→20:22)
[2021-08-30] MEDS: timolol 0.5% ophthalmic solution 5ml bottle RIGHTEYE SCH ×2 (09:44→20:19)
[2021-08-30] MEDS: brimonidine 0.2% 5 ML ophthalmic drops RIGHTEYE SCH ×2 (09:44→20:19)
[2021-08-30] MEDS: nystatin 15 GM powder TP SCH ×2 (09:45→20:19)
[2021-08-30] MEDS: insulin Lispro (HumaLOG) vial - multi-dose SQ SCH ×2 (09:52→13:19)
--- NOTE | 2021-08-30 10:51 | NUR ---
Reassessment: Pt continues on Renal diet w/ avg intake 68% since last nutrition assessment 08/25. Pt is also receiving smoothies BIDBD and Nepro WL avg PO 78% meeting estimated nutrient needs. Pt received HD 08/29 w/ 4L removed per I&O. LBM 08/26, not currently receiving routine bowel care per documentation. No nutrition intervention implemented at this time. Will continue to follow. Recs: 1. Continue Renal diet as tolerated 2. Smoothies BIDBD, Nepro WL; [facility] currently out of stock 3. Bowel care per rx 4. Scaled wt w/ HD Addendum: 08/30/21 at [address] Amended: Links added. Addendum: 08/30/21 at [address] I have reviewed assessment by record label internship
[2021-08-30] MEDS: hydrOXYzine 25 MG tablet PO PRN ×2 (11:22→19:35)
[2021-08-30] MEDS ORDERED: regadenoson 0.4mg/5ml syringe IV PRN (11:45)
[2021-08-30] MEDS ORDERED: aminophylline 500mg/20ml vial IV PRN (11:45)
[2021-08-30] MEDS ORDERED: nitroGLYCERIN 0.4mg SUBLingual tab SL PRN (11:45)
[2021-08-30] MEDS ORDERED: metoprolol tartrate 1mg/ml inj IV PRN (11:45)
--- NOTE | 2021-08-30 13:52 | NUR ---
: Patient in Room 3014/A ERNA BROWN have a critical lab TROPONIN LEVELS; 152
[2021-08-30] MEDS: latanoprost 0.005% 2.5ml ophthalmic drops RIGHTEYE SCH (20:22)
[2021-08-30] MEDS: insulin glargine (Lantus) pen - multi-dose SQ SCH (21:47)
[2021-08-31] MEDS: HYDROcodone/acetaminophen 10/325mg tab PO PRN ×4 (00:59→19:02)
[2021-08-31] MEDS: normal saline 1000ml 1,000 ML IV SCH (01:15)
[2021-08-31 02:00] VITALS: BP 137/58
[2021-08-31 06:00] VITALS: BP 129/44
[2021-08-31] MEDS: JUVEN Smoothie Arginine/Glut./Ca2+Bmb (Juven 19.3pkt) 240ml cup PO SCH (07:00)
[2021-08-31] MEDS: heparin, porcine 5000 units/ml vial SQ SCH (07:22)
[2021-08-31] MEDS: calcium acetate 667mg (PhosLO) capsule PO SCH ×2 (07:22→13:39)
[2021-08-31] MEDS: atorvastatin 20mg tablet PO SCH (07:23)
[2021-08-31] MEDS: pantoprazole 40mg Tablet.DR PO SCH (07:23)
[2021-08-31] MEDS: furosemide 40mg/4ml inj IV SCH (07:26)
[2021-08-31 07:28] VITALS: BP 147/32
[2021-08-31] MEDS: brimonidine 0.2% 5 ML ophthalmic drops RIGHTEYE SCH (07:36)
[2021-08-31] MEDS: timolol 0.5% ophthalmic solution 5ml bottle RIGHTEYE SCH (07:36)
[2021-08-31] MEDS: nystatin 15 GM powder TP SCH (07:37)
[2021-08-31] MEDS: hydrOXYzine 25 MG tablet PO PRN (07:42)
[2021-08-31] MEDS ORDERED: normal saline 1000ml 250 ML IV PRN (08:00)
[2021-08-31] MEDS ORDERED: EPOETIN ALFA-EPBX 20,000 UNIT/ML 1 ML MDV IV ONE (08:00)
[2021-08-31] MEDS ORDERED: heparin 1,000 units/ml 10ml inj IV ONE (08:00)
[2021-08-31] MEDS: lisinopril 20mg tablet PO SCH (08:00)
[2021-08-31] MEDS ORDERED: LIDOcaine 1% (10mg/ml) 2ml vial SQ ONE (08:00)
[2021-08-31] MEDS: carVEDilol 12.5mg tablet PO SCH (08:00)
[2021-08-31] MEDS: ciprofloxacin 250mg tablet PO SCH (09:26)
[2021-08-31 10:16] LABS: HEMOGLOBIN 8.2 g/dl (12.0-16.0); MEAN CORPUSCULAR HEMOGLOBIN 29.1 PG (27.0-31.0); MEAN CORPUSCULAR HGB CONC 31.7 g/dL (33.0-36.5); MEAN PLATELET VOLUME 7.5 FL (7.4-10.4); PLATELET COUNT 193 X10'3 (140-440); RED BLOOD COUNT 2.83 X10'6 (4.20-5.60); RED CELL DISTRIBUTION WIDTH 17.3 % (11.5-14.5)
[2021-08-31 11:00] VITALS: BP 140/38
--- NOTE | 2021-08-31 11:12 | NUR ---
pt was taken down to [facility] for resting test, won't be able to complete cardiac stress test today due to maintenance on equipment. Pt also refusing initial part of test after seeing equipment "I don't think I can lie flat that long...the machine won't fit around me", Himanshu, nuc [facility] tech and myself, transporting RN, explain to pt the procedure and why the test was recommended, pt continue to refuse test "I just want to go home and need dialysis today", Dr Garcia and Robyn RN aware
[2021-08-31] MEDS ORDERED: HYDR-3972 PO (11:39)
[2021-08-31] MEDS: NUT.TX.IMP.RENAL FXN,LAC-REDUC (Nepro) 237 ML VANILLA PO SCH (12:30)
[2021-08-31 15:48] VITALS: BP 140/38
[2021-08-31 19:00] VITALS: BP 138/56
--- NOTE | 2021-08-31 19:45 | NUR ---
Pt Left facility in stable condition.
== END 2021-08-31 19:25 | disposition home health service (06) | DRG 640 ==
LOC: PCU 3S 22:00
PROVIDERS: ADMIT Internal Medicine; ATTEND Internal Medicine
PROC: 5A1D70Z Performance of Urinary Filtration, Intermittent, Less than 6 Hours Per Day (ICD-10-PCS; 2021-08-23)
PROC: 5A1D70Z Performance of Urinary Filtration, Intermittent, Less than 6 Hours Per Day (ICD-10-PCS; 2021-08-24)
PROC: 5A1D70Z Performance of Urinary Filtration, Intermittent, Less than 6 Hours Per Day (ICD-10-PCS; 2021-08-26)
PROC: 5A1D70Z Performance of Urinary Filtration, Intermittent, Less than 6 Hours Per Day (ICD-10-PCS; 2021-08-29)
PROC: 5A1D70Z Performance of Urinary Filtration, Intermittent, Less than 6 Hours Per Day (ICD-10-PCS; principal; 2021-08-31)
DX: E87.5 Hyperkalemia (principal); N18.6 End stage renal disease; Z68.42 Body mass index [BMI] 45.0-49.9, adult; I12.0 Hypertensive chronic kidney disease with stage 5 chronic kidney disease or end stage renal disease; Z20.822 Contact with and (suspected) exposure to COVID-19; E78.5 Hyperlipidemia, unspecified; E11.22 Type 2 diabetes mellitus with diabetic chronic kidney disease; I25.10 Atherosclerotic heart disease of native coronary artery without angina pectoris; D63.8 Anemia in other chronic diseases classified elsewhere; H57.11 Ocular pain, right eye; K21.9 Gastro-esophageal reflux disease without esophagitis; E66.01 Morbid (severe) obesity due to excess calories; G89.4 Chronic pain syndrome; J44.9 Chronic obstructive pulmonary disease, unspecified; L89.152 Pressure ulcer of sacral region, stage 2; Z79.4 Long term (current) use of insulin; Z79.899 Other long term (current) drug therapy; Z91.19 Patient's noncompliance with other medical treatment and regimen; Z99.2 Dependence on renal dialysis; Z88.8 Allergy status to other drugs, medicaments and biological substances; Z88.2 Allergy status to sulfonamides; Z91.013 Allergy to seafood; Z91.15 Patient's noncompliance with renal dialysis; R07.9 Chest pain, unspecified
CPT/HCPCS: 36415; 71045; 80053; 82948; 83605; 83735; 84100; 84484; 85025; 85027; 87040; 87081; 87340; 93005; 97110; 97162; 97530; A9500; G0257; G0378; J1644; J1815; J1940; J2150; J2270; J7030; Q0177; Q4081